=== PATIENT | female | born 1960 | race Caucasian/White ===

== ENCOUNTER 2016-07-28 12:38 | Emergency (ER) | payer SELFPAY ==
--- NOTE | 2016-08-03 17:58 | ER ---
ADMIT: 07/28/2016 RM/LOC: [place] [facility] [id number] [address] [id number] JOSHUA JOSEPH [address] [place] [address] Emergency Room Report SEX: F AGE: 55 : 1960 CORRECTED: 07/30/2016 1118 DJS DATE: 07/28/2016 CHIEF COMPLAINT: Dysuria. HISTORY OF PRESENT ILLNESS: A 55-year-old female, presents with 8 days of urinary frequency and dysuria. States she was seen last week at [facility], started on Bactrim on . Since that time, she feels like she is not improved, continues to complain of suprapubic pain and pressure, frequency with urination and some hematuria. Denies any chills. States she has a fever up to 99.9. Admits to nausea and vomiting, decreased appetite. Denies any flank pain. Continues to eat and drink well. PAST MEDICAL HISTORY: Diabetes and asthma. ALLERGIES: PENICILLIN. COURSE IN EMERGENCY ROOM: The patient was seen and examined. PHYSICAL EXAMINATION: VITAL SIGNS: She is afebrile and nontoxic. Temp 98.8, blood pressure 111/66. GENERAL: She is no acute distress. She is alert. ABDOMEN: She does have some suprapubic tenderness to palpation. No guarding or rebound. No McBurney's point tenderness. BACK: No CVA tenderness. She does have some low back tenderness just above the gluteal cleft, but no CVA tenderness. CHEST: Nontender. No wheezes, rhonchi, or rales. EXTREMITIES: Nontender. No pedal edema. SKIN: Warm and dry. NEUROLOGIC: She is alert oriented x4. I did repeat UA today, significant for continued infection, 3+ leukocyte esterase, positive nitrite, 722 white blood cells per high-power field, 81 rbc's, no white blood cell casts. She was educated on her diagnosis today and ADMIT: 07/28/2016 RM/LOC: [facility] [place]#: [id number] [id number] JOSHUA JOSEPH [facility] [place] [address] Emergency Room Report SEX: F AGE: 55 : 1960 the need to start the antibiotic. I will switch her antibiotics from Bactrim to Cipro today. IMPRESSION: Acute cystitis with hematuria. DISPOSITION: The patient is to stop taking the Bactrim. She is to start Cipro 500 mg p.o. t.i.d. I also started her on Pyridium 200 mg p.o. t.i.d. for 2 days. Continue encourage to push fluids. Follow up with [facility] next week. Questions sought and answered to best of my ability and the patient's satisfaction. Discharged in stable condition. ONEIL Mccord / Quincy Lucero MD / aubrey JOB #: [id number] CC: Quincy Lucero MD, Attending Physician Vivi Carreon, CR[employer] COACH-LASHAE, Family Physician CORRECTED: 07/30/2016 1118 MOODY
== END 2016-07-28 15:00 | disposition home or self-care (01) ==
LOC: ER 12:38
DX: N30.01 Acute cystitis with hematuria (principal); E11.9 Type 2 diabetes mellitus without complications; J45.909 Unspecified asthma, uncomplicated; F17.200 Nicotine dependence, unspecified, uncomplicated; Z88.0 Allergy status to penicillin; Z79.899 Other long term (current) drug therapy